=== PATIENT | male | born 1955 | race Caucasian/White ===

== ENCOUNTER 2025-01-07 09:48 | Emergency (ER) | payer MEDICARE ==
[~2025-01-07] VITALS: Ht 182.9 cm; Wt 125.7 kg
[2025-01-07 09:52] VITALS: TEMP 98
[2025-01-07] MEDS ORDERED: NAPH15DR8 LEFTEYE (11:02)
[2025-01-07] MEDS: naphazoline/pheniramine eye 1 DROP BOTTLE EACHEYE STA (11:14)
[2025-01-07 11:18] VITALS: BP 131/79; PULSE 69; RESP 16; O2SAT 100
== END 2025-01-07 12:05 | disposition home or self-care (01) ==
LOC: ER 09:50
DX: H10.13 Acute atopic conjunctivitis, bilateral (principal)
CPT/HCPCS: 99282

== ENCOUNTER 2025-08-02 11:23 | Outpatient (CLI) | payer MEDICARE ==
[~2025-08-02 11:23] MED LIST: NAPH15DR8 LEFTEYE
--- NOTE | 2025-08-02 12:58 | RADIOLOGY REPORT ---
CLINICAL INDICATION: CHRONIC PAIN; RIGHT HIP TECHNIQUE: 3 radiographic views of the sacrum/coccyx were obtained. Comparison: None FINDINGS/IMPRESSION: There is no evidence of acute fracture or dislocation. 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
--- NOTE | 2025-08-02 12:58 | RADIOLOGY REPORT ---
INDICATION: CHRONIC PAIN; RIGHT HIP COMPARISON: DI SACRUM COCCYX on DOS: 08/02/25 TECHNIQUE: 4 views of the lumbar spine were obtained. FINDINGS: Moderate multilevel degenerative disc disease lumbosacral spine. No acute fracture, vertebral compression deformity or aggressive osseous lesions. The paravertebral soft tissues are grossly unremarkable. IMPRESSION: No acute fracture.
--- NOTE | 2025-08-02 13:00 | RADIOLOGY REPORT ---
CLINICAL INDICATION: CHRONIC PAIN; RIGHT HIP TECHNIQUE: 4 radiographic views of the right femur were obtained. 2 views of the right hip and 1 view of the pelvis were obtained Comparison: DI LUMBAR SPINE COMPLTE on DOS: 08/02/25, DI SACRUM COCCYX on DOS: 08/02/25 FINDINGS/IMPRESSION: There is no evidence of acute fracture or dislocation. Severe osteoarthrosis of the right femoroacetabular joint.
--- NOTE | 2025-08-02 13:00 | RADIOLOGY REPORT ---
CLINICAL INDICATION: CHRONIC PAIN; RIGHT HIP TECHNIQUE: 4 radiographic views of the right femur were obtained. 2 views of the right hip and 1 view of the pelvis were obtained Comparison: DI FEMUR 2 VIEWS on DOS: 08/02/25 FINDINGS/IMPRESSION: There is no evidence of acute fracture or dislocation. Severe osteoarthrosis of the bilateral femoroacetabular joint.
== END 2025-08-02 23:59 | disposition home or self-care (01) ==
LOC: RAD 11:23
PROVIDERS: ATTEND Nurse Practitioner Family
DX: M16.0 Bilateral primary osteoarthritis of hip (principal); M25.511 Pain in right shoulder; G89.29 Other chronic pain; M54.41 Lumbago with sciatica, right side; M47.817 Spondylosis without myelopathy or radiculopathy, lumbosacral region
CPT/HCPCS: 72110; 72220; 73502; 73552